=== PATIENT | male | born 1980 | race Hispanic/Latino ===

== ENCOUNTER 2019-05-10 08:21 | Emergency (ER) | payer OTHER ==
[2019-05-10] MEDS ORDERED: Iopamidol 370 76% 100 ML VIAL ONE (09:00)
[2019-05-10 09:15] LABS: #Basophils 0.1 thou/uL (0.0-0.2); #Lymphocytes 1.5 thou/uL (1.20-3.40); #Monocytes 0.7 thou/uL (0.11-0.59); #Neutrophils 10.5 thou/uL (1.40-6.50); %Basophils 0.4 % (0.0-1.0); %Eosinophils 0.1 % (0.0-10.0); %Lymphocytes 11.4 % (21.0-51.0); %Monocytes 5.6 % (0.0-10.0); %Neutrophils 82.4 % (42.0-75.0); Hemoglobin 16.3 g/dL (14.0-18.0); Mean Corpuscular HGB CONC 32.4 g/dL (32.0-36.0); Mean Corpuscular Hemoglobin 29.3 pg (27.0-31.0); Mean Corpuscular Volume 90.4 fL (78.0-98.0); Mean Platelet Volume 8.7 fL (7.4-10.4); Platelet Count 181 thou/uL (130-400); RBC Distribution Width 12.3 % (11.5-14.5); Red Blood Cell (RBC) Count 5.58 mill/uL (4.70-6.10); White Blood Cell (WBC) Count 12.7 thou/uL (4.8-10.8)
[2019-05-10 09:35] LABS: ALT (SGPT) 17 U/L (8-55); AST (SGOT) 20 U/L (5-34); Albumin 4.4 g/dL (3.5-5.0); Alcohol 114 mg/dL (Less than 10); Alkaline Phosphatase 73 U/L (40-150); Anion Gap 16 mmol/L (10-20); BUN (Urea Nitrogen) 8 mg/dL (8.9-20.6); Bilirubin, Total 0.4 mg/dL (0.2-1.2); Calc. Creatinine Clearance 0 mL/min (70-130); Calcium 9.1 mg/dL (7.8-10.44); Carbon Dioxide 24 mmol/L (22-29); Chloride 105 mmol/L (98-107); Estimated GFR-MDRD Greater than 90; Globulin 3.3 g/dL (2.4-3.5); Glucose 116 mg/dL (70-105); Potassium 3.9 mmol/L (3.5-5.1); Protein, Total 7.7 g/dL (6.0-8.3); Sodium 141 mmol/L (136-145)
--- NOTE | 2019-05-10 10:06 | CT ---
CT BRAIN WITHOUT CONTRAST: HISTORY: Trauma. Altercation. Headache. FINDINGS: No evidence of infarct, hemorrhage, midline shift, or abnormal extraaxial fluid collections is seen. The ventricular size is normal, and the basilar cisterns are patent. There is mucosal disease in th e paranasal sinuses. The mastoid air cells are clear. IMPRESSION: No CT evidence of acute intracranial process. POS: [facility]
--- NOTE | 2019-05-10 10:11 | CT ---
CT cervical spine without contrast: Multiple axial tones obtained through cervical spine with multiplanar reconstruction. INDICATIONS: trauma with cervical spine injury COMPARISON: none FINDINGS: Cervical vertebra maintain normal height and alignment.. Disc spaces are normal. Posterior elements are normally aligned. No evidence of fracture. IMPRESSION: No acute finding
--- NOTE | 2019-05-10 10:16 | CT ---
CT facial bones: Multiple axial tones obtained through facial bones without contrast. Multiplanar reconstruction. INDICATIONS:Trauma COMPARISON:None FINDINGS: Nasal bones appear intact. Orbits appear intact. zygoma appear intact. There is opacification of the right maxillary sinus. Maxilla appears intact. Mandible appears intact. Soft tissues appear unremarkable. IMPRESSION: 1. No evidence of basal bone fracture. 2. Opacification of the right maxillary sinus.
--- NOTE | 2019-05-10 10:45 | CT ---
CTA NECK WITH IV CONTRAST AND 3D POST PROCESSING: HISTORY: Trauma. Neck pain. FINDINGS: The vertebrobasilar and carotid artery systems in the neck and visualized portions of the brain demon strate good flow without evidence of stenosis, occlusion, dissection, or aneurysm formation. A domin ant left vertebral artery is present. IMPRESSION: No acute finding. POS: [facility]
[2019-05-10] MEDS ORDERED: Lidocaine 1% (PF) 30 ML VIAL ONE (10:47)
== END 2019-05-10 12:05 | disposition home or self-care (01) ==
LOC: NAV ERS 08:21
DX: S01.81XA Laceration without foreign body of other part of head, initial encounter (principal); S11.91XA Laceration without foreign body of unspecified part of neck, initial encounter; W26.0XXA Contact with knife, initial encounter
CPT/HCPCS: 12015; 36415; 70450; 70486; 70498; 72125; 80053; 80307; 85025; J2001; Q9967